=== PATIENT | male | born 1995 | race Caucasian/White ===

== ENCOUNTER 2021-09-02 20:44 | Emergency (ER) | payer OTHER ==
[~2021-09-02] VITALS: Ht 180.3 cm; Wt 68.2 kg
[2021-09-02 20:44] VITALS: BP 144/93
[2021-09-02] MEDS ORDERED: BACITRACIN OINTMENT 30GM TUBE TOP ONE (21:45)
[2021-09-02] MEDS ORDERED: ACETAMINOPHEN TAB 650MG DOSE (2X325MG) PO ONE (21:45)
[2021-09-02] MEDS ORDERED: IBUPROFEN 600MG TAB PO ONE (21:45)
== END 2021-09-02 22:09 | disposition home or self-care (01) ==
LOC: M ED 20:44
DX: T23.152A Burn of first degree of left palm, initial encounter (principal); T23.202A Burn of second degree of left hand, unspecified site, initial encounter; T31.0 Burns involving less than 10% of body surface; X08.8XXA Exposure to other specified smoke, fire and flames, initial encounter; Y92.099 Unspecified place in other non-institutional residence as the place of occurrence of the external cause; Y93.G2 Activity, grilling and smoking food